=== PATIENT | male | born 1980 | race Caucasian/White ===

== ENCOUNTER 2021-01-09 19:57 | Emergency (ER) | payer OTHER, SELFPAY ==
--- NOTE | ~2021-01-09 | XR_ITS ---
EXAMINATION: XR elbow RT min 3V EXAM DATE: 01/09/2021 20:20 INDICATION: Initial encounter following injury, with pain of the right elbow. TECHNIQUE: Right elbow frontal, lateral with flexion, and oblique projections obtained and reviewed. There is no prior study for comparison. FINDINGS: Right elbow anterior humeral line intact. There are no acute fractures or dislocations lissette ntified. There is no subcutaneous gas. There is soft tissue swelling right elbow posteriorly. There are no radiopaque foreign bodies. IMPRESSION: 1. XR elbow RT min 3V exam without acute osseous findings. 2. Posterior swelling Reviewed, dictated and finalized at location A.
[2021-01-09 20:00] VITALS: BP 152/81; PULSE 69; RESP 16; TEMP 37.1; O2SAT 99
--- NOTE | 2021-01-09 22:05 | ED.UPPEXIN ---
HPI - Extremity Injury (Upper) General Chief Complaint: Extremity Injury, Upper Stated Complaint: broke my right elbow Time Seen by Provider: 01/09/21 21:57 Source: patient Mode of arrival: ambulatory Limitations: no limitations History of Present Illness HPI narrative: Patient is 40 years old white male presented to the ED with pain at the back of the right elbow. Yesterday patient lost the handle of the lawn more, hit the back of the right elbow on the wall accidentally. Patient reports no limitation of movement, is painful if somebody touches it Related Data Home Medications Medication Instructions Recorded Confirmed No Home Medications 01/09/21 01/09/21 Allergies Allergy/AdvReac Type Severity Reaction Status Date / Time No Known Allergies Allergy Mild Verified 01/09/21 19:58 Review of Systems Review of Systems: Narrative: CONSTITUTIONAL: Denies fever, chills, or sweats. EYES: Denies visual changes, redness, or discharge. ENT: Denies rhinorrhea, congestion, sore throat, or otalgia. CARDIOVASCULAR: Denies chest pain, palpitations, or edema. RESPIRATORY: Denies cough or dyspnea. GASTROINTESTINAL: Denies abdominal pain, nausea, vomiting, or diarrhea. GENITOURINARY: Denies dysuria or hematuria. SKIN: Denies rash or itching. MUSCULOSKELETAL: Denies back pain, joint pain, or myalgia. NEUROLOGIC: Denies headache, numbness, or weakness. PSYCHIATRIC: Denies anxiety or depression. Exam Narrative: Exam Narrative: General appearance: Well-developed, well-nourished Vascular: Normal peripheral pulses, normal capillary refill. Musculoskeletal: Right elbow exam showed slight swelling posteriorly, slight diffuse tenderness, slight bruises, good range of motion Neurologic: Alert and oriented ?3, SERVICE GIRL is normal as tested, no gross motor deficit Course Course Emergency Course: X-ray right elbow ordered Vital Signs Vital signs: Vital Signs Temperature 37.1 C 01/09/21 20:00 Pulse Rate 69 01/09/21 20:00 Respiratory Rate 16 01/09/21 20:00 Blood Pressure 152/81 H 01/09/21 20:00 Pulse Oximetry 99 01/09/21 20:00 Temperature 37.1 C 01/09/21 20:00 Pulse Rate 69 01/09/21 20:00 Respiratory Rate 16 01/09/21 20:00 Blood Pressure 152/81 H 01/09/21 20:00 Pulse Oximetry 99 01/09/21 20:00 MDM - Extremity Injury (Upper) MDM Narrative Medical decision making narrative: Right elbow contusion versus fracture is my concern Differential Diagnosis Differential diagnosis: Likely other (Contusion, fracture) Critical Care Time Critical Care Time Critical Care Time: No Discharge Plan Discharge Clinical Impression: Contusion of elbow, right Qualifiers: Encounter type: initial encounter Qualified Code(s): S50.01XA - Contusion of right elbow, initial encounter Patient Disposition: Home, Self-Care Condition: Stable Instructions: Antibiotic Form, Contusion in Adults (ED) Additional Instructions: Return if symptoms are worsening , call your family physician for appointment, take Tylenol, ibuprofen as as needed for aches and pain, continue home medications. Prescriptions: No Action No Home Medications RF: 0 Follow-up/Referrals: PHYSICIAN,[employer]ENE[employer] MANUFACTURER [Primary Care Provider] - Richard Espinoza MD [Physician] -
[2021-01-09 22:23] VITALS: BP 121/87; PULSE 54; RESP 18; TEMP 36.8; O2SAT 99
== END 2021-01-09 22:26 | disposition home or self-care (01) ==
PROVIDERS: Emergency Provider Emergency Medicine
DX: S50.01XA Contusion of right elbow, initial encounter (principal); W22.01XA Walked into wall, initial encounter
CPT/HCPCS: 73080; 99283

== ENCOUNTER 2024-03-31 07:38 | Outpatient (CLI) | payer OTHER, SELFPAY ==
--- NOTE | ~2024-03-31 | MR_ITS ---
MRI of the left knee Clinical history: Chronic pain Technique: Coronal proton density and proton density-weighted images, sagittal proton-density and T2 fat-sat images, and axial proton-density fat-saturated images were acquired. Findings: Anterior and posterior cruciate ligaments are intact. Medial collateral ligament and the la teral collateral ligament complex are intact. Popliteus tendon is intact. Medial and lateral menisci are intact, without evidence of tear. There is moderate chondromalacia along the lateral patellar facet. Remaining articular cartilage is w ell preserved. There is moderate tendinosis of the proximal patellar tendon, with focal low to moderate grade partia l thickness tear at the proximal tendon.. Distal quadriceps tendon is intact. No significant joint ef fusion or Cantu's cyst. Impression: Focal low to moderate grade partial thickness tear at the proximal patellar tendon with associated mo derate tendinosis of the proximal tendon. Moderate chondromalacia patella. Reviewed, dictated and finalized at [facility]. Impression: Focal low to moderate grade partial thickness tear at the proximal patellar ten don with associated moderate tendinosis of the proximal tendon. Moderate chondromalacia patella.
== END 2024-03-31 07:39 | disposition home or self-care (01) ==
PROVIDERS: Visit Provider Orthopaedic Surgery Sports Medicine
DX: M25.562 Pain in left knee (principal); G89.29 Other chronic pain
CPT/HCPCS: 73721